=== PATIENT | female | born 1975 ===

== ENCOUNTER 2018-07-25 14:13 | Emergency (ER) | payer OTHER ==
[~2018-07-25] VITALS: Ht 165.1 cm; Wt 121.6 kg
== END 2018-07-25 20:40 | disposition home or self-care (01) ==
LOC: ER 14:13
DX: I16.0 Hypertensive urgency (principal); I10 Essential (primary) hypertension; M75.51 Bursitis of right shoulder

== ENCOUNTER 2019-02-09 16:12 | Emergency (ER) | payer OTHER ==
[~2019-02-09] VITALS: Ht 165.1 cm; Wt 117.9 kg
[2019-02-09] MEDS ORDERED: FORTAMET1000 MG (16:51)
== END 2019-02-09 18:53 | disposition home or self-care (01) ==
LOC: ER 16:12
DX: E11.65 Type 2 diabetes mellitus with hyperglycemia (principal)